=== PATIENT | female | born 1955 | race Caucasian/White ===

== ENCOUNTER 2016-06-02 11:08 | Emergency (ER) | payer OTHER ==
[~2016-06-02] VITALS: Ht 167.6 cm; Wt 104.9 kg
[~2016-06-02 11:08] MED LIST: CALC500C70 PO; CETI10TA10 PO; CYAN10005 PO; DILT-115 PO; DOCU100C31 PO; ESOM20CA PO; FIBER PO; FURO40TA3 PO; GLIP-199 PO; GLUC10007 PO; HMLIS SQ; INSUINJ4 SQ; LSNP/30 PO; METF-384 PO; MULT-602 PO; POTA20TA16 PO; PRAV80TA PO
[2016-06-02 11:13] VITALS: TEMP 37; Ht 167.6 cm; Wt 104.9 kg
[2016-06-02] MEDS ORDERED: ALUMINUM/MAGNESIUM SUSP 30 ML UDC PO STA (11:32)
[2016-06-02] MEDS ORDERED: LIDOCAINE HCL 2% VISC SOLN 20 ML UDC PO STA (11:32)
[2016-06-02] MEDS ORDERED: PROB1CAP41 PO (11:53)
[2016-06-02] MEDS ORDERED: INSDGI SC (11:53)
[2016-06-02] MEDS ORDERED: FAMOTIDINE 20MG/102 ML D5W IV STA (12:14)
[2016-06-02] MEDS ORDERED: OXYCODONE HCL IR 5 MG TAB (IMMEDIATE RELEASE) PO STA (12:14)
[2016-06-02] MEDS ORDERED: PANTOprazole INJ 40 MG in SYRINGE 0 ML IV ONE (12:15)
[2016-06-02 12:20] LABS: URINE APPEARANCE CLEAR (CLEAR); URINE BILIRUBIN NEG (NEG); URINE COLOR YELLOW; URINE EPITHELIAL CELL AUTO 20-30 /lpf (0-5); URINE NITRITE NEG (NEG); URINE SPECIFIC GRAVITY 1.012 (1.000-1.030); UROBILINOGEN NEG (NEG); ZZUR CULT IF INDIC CLEAN CATCH YES
[2016-06-02 12:26] LABS: HEMATOCRIT 37.8 % (37-47); MEAN CELL VOLUME 87.5 fL (80-100); MEAN CORPUSCULAR HEMOGLOBIN 29.6 pg (25-34); MEAN CORPUSCULAR HGB CONC 33.9 g/dl (32-36); MEAN PLATELET VOLUME 9.1 fL (7.4-10.4); PLATELET COUNT 330 K/uL (130-400); RED BLOOD COUNT 4.32 M/uL (4.2-5.4); WHITE BLOOD COUNT 10.15 K/uL (4.8-10.8)
[2016-06-02 12:28] LABS: MANUAL MICROSCOPIC REQUIRED? NO; REVIEW REQ? NO
[2016-06-02 12:46] LABS: BUN/CREATININE RATIO 18.5 (10-20); CALCIUM 9.2 mg/dl (8.5-10.1); CREATININE 0.81 mg/dl (0.60-1.20)
[2016-06-02 12:48] LABS: BASO % 0.1 %; BASO ABS # 0.01 K/uL (0-0.2); COMPLETE YES; EOS % 0.1 %; IG% 0.2 %; LYMPH % 7.1 %; LYMPH ABS # 0.72 K/uL (1.2-3.4); NEUT % 87.5 %
[2016-06-02] MEDS ORDERED: ONDANSETRON INJ 2 MG/ML 2 ML VIAL IV STA (13:09)
[2016-06-02] MEDS ORDERED: MoRPHine SULFATE 10 MG/ML CARP/VIAL IV STA (13:09)
[2016-06-02 13:36] VITALS: O2SAT 86
--- NOTE | 2016-06-02 14:07 | DIAGNOSTIC IMAGING REPORT ---
ABDOMEN 2VIEW W/PA CHEST RTN CLINICAL HISTORY: epigastric pain COMPARISON STUDY: 11/13/2015 FINDINGS: The cardiac and mediastinal contours remain stable. There is elevation right hemidiaphragm. There is a persistent right infrahilar opacity, likely representing a summation of atelectatic changes and pulmonary vessels.] Supine views the abdomen reveal scattered stool within the colon. There is a levoscoliosis. There are no transition zones indicate bowel obstruction. There is a pelvic calcification possibly representing a degenerated uterine fibroid. IMPRESSION: No evidence of bowel obstruction. No evidence of free air. Electronically signed by: Ambrosio Wray M.D. 06/02/2016 2:05 PM Dictated Date/Time: 06/02/2016 2:03 PM
--- NOTE | 2016-06-02 14:38 | EMERGENCY ROOM VISIT NOTE ---
History First contact with patient: 11:21 Chief Complaint: OTHER COMPLAINT Stated Complaint: PRESSURE BETWEEN BREAST History of Present Illness The patient is a 61 year old female who presents to the Emergency Room with complaints of epigastric pain which started this morning. The patient states that the pain is in the epigastric region and then radiates somewhat down into her abdomen and up into her throat. The patient admits to feeling slightly nauseated but no vomiting. 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 Her last endoscopy was 2013. The patient is on Nexium for her esophagitis. The patient states that she ate Frisian yesterday but no other out of the ordinary foods. The patient denies any chest pain or shortness of breath. The patient states that she had similar symptoms in October and had a complete cardiac workup which was negative. The patient denies any recent URI symptoms or cough or chest tightness. Review of Systems 10 system review was performed and was negative unless stated otherwise history of present illness. Past Medical/Surgical History Medical Problems: (1) Hypertension (2) Insulin dependent diabetes mellitus Surgical Problems: (1) History of appendectomy (2) History of breast biopsy Sewell esophagitis Family History FH: coronary artery disease FH: diabetes mellitus FH: hypertension Social History Smoking Status: Never Smoker Alcohol Use: none Drug Use: none Marital Status: Housing Status: lives with family Occupation Status: employed Current/Historical Medications Scheduled Calcium/Vitamin D (Os-Derek 500 Plus D), 1 TAB PO DAILY Cetirizine Hcl (Zyrtec), 10 MG PO DAILY Cyanocobalamin (Vitamin B-12), 1,000 MCG PO DAILY Diltiazem Hcl Ext Rel (Tiazac), 240 MG PO DAILY Docusate Sodium (Docusate Sodium), 100 MG PO BID Esomeprazole Magnesium (Nexium), 20 MG PO DAILY Fiber Laxative (Fiber Laxative), 1 TAB PO BID Furosemide (Lasix), 40 MG PO BID Glipizide (Glipizide Er), 10 MG PO DAILY Glucosamine Sulfate (Glucosamine), 1,500 MG PO BID Insulin Glargine (Lantus), 0 SC QPM Insulin Human Lispro (Humalog Kwikpen), UNITS SQ TIDM Lisinopril (Zestril), 30 MG PO DAILY Metformin Hcl (Glucophage), 1,000 MG PO BID Multiple Vitamins W/ Minerals (Womens 50+ Multi Vitamin), 1 TAB PO DAILY Potassium Ext Rel (Klor-Con), 20 MEQ PO DAILY Pravastatin Sodium (Pravachol), 80 MG PO DAILY Probiotic Product (Probiotic Daily), 1 TAB PO DAILY Allergies Coded Allergies: No Known Allergies (Unverified , 11/13/15) Physical Exam Vital Signs Date Time Temp Pulse Resp B/P Pulse Ox O2 Delivery O2 Flow Rate FiO2 06/02/16 13:36 95 Nasal Cannula 2.0 06/02/16 13:36 86 Room Air 06/02/16 13:26 90 18 136/73 98 Room Air 06/02/16 11:13 37.0 86 17 173/92 100 Room Air Pain Rating (0-10): 6.0 Physical Exam GENERAL: 61 year-old obese white female appears in no acute distress. MENTAL Status: Alert and oriented 3. EYES: No icterus noted MOUTH: Mucosa is moist NECK: Supple, no lymphadenopathy noted. No carotid bruits noted. LUNGS: Clear auscultation without wheezes rales or rhonchi. CARDIAC: Regular rate and rhythm without murmur. Pulses is full and equal throughout. BACK: No CVA tenderness noted. ABDOMEN: Positive bowel sounds all 4 quadrants. Soft, patient has moderate tenderness to palpation in the epigastric region and mild tenderness in the left upper quadrant otherwise nontender to palpation without organomegaly or masses. EXTREMITIES: No cyanosis or edema noted. Medical Decision & Procedures ER Provider Diagnostic Interpretation: ABDOMEN 2VIEW W/PA CHEST RTN CLINICAL HISTORY: epigastric pain COMPARISON STUDY: 11/13/2015 FINDINGS: The cardiac and mediastinal contours remain stable. There is elevation right hemidiaphragm. There is a persistent right infrahilar opacity, likely representing a summation of atelectatic changes and pulmonary vessels.] Supine views the abdomen reveal scattered stool within the colon. There is a levoscoliosis. There are no transition zones indicate bowel obstruction. There is a pelvic calcification possibly representing a degenerated uterine fibroid. IMPRESSION: No evidence of bowel obstruction. No evidence of free air. Electronically signed by: Ambrosio Wray M.D. 06/02/2016 2:05 PM Dictated Date/Time: 06/02/2016 2:03 PM Laboratory Results 06/02/16 11:58 Red Blood Count 4.32, Mean Corpuscular Volume 87.5, Mean Corpuscular Hemoglobin 29.6, Mean Corpuscular Hemoglobin Concent 33.9, Mean Platelet Volume 9.1, Neutrophils (%) (Auto) 87.5, Lymphocytes (%) (Auto) 7.1, Monocytes (%) (Auto) 5.0, Eosinophils (%) (Auto) 0.1, Basophils (%) (Auto) 0.1, Neutrophils # (Auto) 8.88, Lymphocytes # (Auto) 0.72, Monocytes # (Auto) 0.51, Eosinophils # (Auto) 0.01, Basophils # (Auto) 0.01 06/02/16 11:58 Test 06/02/16 11:47 06/02/16 11:58 Urine Color YELLOW Urine Appearance CLEAR (CLEAR) Urine pH 5.0 (4.5-7.5) Urine Specific [place] 1.012 (1.000-1.030) Urine Protein NEG (NEG) Urine Glucose (UA) NEG (NEG) Urine Ketones NEG (NEG) Urine Occult Blood NEG (NEG) Urine Nitrite NEG (NEG) Urine Bilirubin NEG (NEG) Urine Urobilinogen NEG (NEG) Urine Leukocyte Esterase TRACE (NEG) Urine WBC (Auto) 1-5 /hpf (0-5) Urine RBC (Auto) 0-4 /hpf (0-4) Urine Hyaline Casts (Auto) 1-5 /lpf (0-5) Urine Epithelial Cells (Auto) 20-30 /lpf (0-5) Urine Bacteria (Auto) 2+ (NEG) White Blood Count 10.15 K/uL (4.8-10.8) Red Blood Count 4.32 M/uL (4.2-5.4) Hemoglobin 12.8 g/dL (12.0-16.0) Hematocrit 37.8 % (37-47) Mean Corpuscular Volume 87.5 fL (80-100) Mean Corpuscular Hemoglobin 29.6 pg (25-34) Mean Corpuscular Hemoglobin Concent 33.9 g/dl (32-36) Platelet Count 330 K/uL (130-400) Mean Platelet Volume 9.1 fL (7.4-10.4) Neutrophils (%) (Auto) 87.5 % Lymphocytes (%) (Auto) 7.1 % Monocytes (%) (Auto) 5.0 % Eosinophils (%) (Auto) 0.1 % Basophils (%) (Auto) 0.1 % Neutrophils # (Auto) 8.88 K/uL (1.4-6.5) Lymphocytes # (Auto) 0.72 K/uL (1.2-3.4) Monocytes # (Auto) 0.51 K/uL (0.11-0.59) Eosinophils # (Auto) 0.01 K/uL (0-0.5) Basophils # (Auto) 0.01 K/uL (0-0.2) RDW Standard Deviation 41.8 fL (36.4-46.3) RDW Coefficient of Variation 13.0 % (11.5-14.5) Immature Granulocyte % (Auto) 0.2 % Immature Granulocyte # (Auto) 0.02 K/uL (0.00-0.02) Anion Gap 7.0 mmol/L (3-11) Est Creatinine Clear Calc Drug Dose 89.3 ml/min Estimated GFR () 90.9 Estimated GFR (Non- 78.4 BUN/Creatinine Ratio 18.5 (10-20) Calcium Level 9.2 mg/dl (8.5-10.1) Total Bilirubin 0.4 mg/dl (0.2-1) Direct Bilirubin 0.1 mg/dl (0-0.2) Aspartate Amino Transf (AST/SGOT) 14 U/L (15-37) Alanine Aminotransferase (ALT/SGPT) 32 U/L (12-78) Alkaline Phosphatase 79 U/L (45-117) Total Protein 7.2 gm/dl (6.4-8.2) Albumin 3.9 gm/dl (3.4-5.0) Lipase 124 U/L (73-393) Medications Administered Medications (Trade) Dose Ordered Sig/Nabila Route Start Time Stop Time Status Last Admin Dose Admin Lidocaine HCl (Viscous Lidocaine 2% Soln) 10 ml NOW STAT PO 06/02/16 11:32 06/02/16 11:34 DC 06/02/16 11:53 10 ML Al Hydroxide/Mg Hydroxide 30 ml 30 ml NOW STAT PO 06/02/16 11:32 06/02/16 11:34 DC 06/02/16 11:53 30 ML Pantoprazole Sodium/Syringe (Protonix Inj/ Syringe) 10 ml @ 5 mls/min NOW ONCE IV 06/02/16 12:15 4/8/17 12:16 DC 06/02/16 13:31 5 MLS/MIN Famotidine (Pepcid 20mg/100 ml) 20 mg ONE STAT IV 06/02/16 12:14 06/02/16 12:16 DC 06/02/16 12:38 20 MG Oxycodone HCl (Roxicodone Immediate Rel Tab) 5 mg NOW STAT PO 06/02/16 12:14 06/02/16 12:16 DC 06/02/16 12:38 5 MG Morphine Sulfate (MoRPHine SULFATE INJ) 6 mg NOW STAT IV 06/02/16 13:09 06/02/16 13:11 DC 06/02/16 13:20 6 MG Ondansetron HCl (Zofran Inj) 4 mg NOW STAT IV 06/02/16 13:09 06/02/16 13:11 DC 06/02/16 13:19 4 MG ECG Indication: abdominal pain Rhythm: normal sinus Findings: no acute ischemic change ED Course Before I evaluated the patient, the nurses went on the triage nurses statement pain between her breasts therefore ordered an EKG. This was interpreted as above without any acute findings. The patient's pain is not in her chest and she has tenderness in the epigastric region and with the patient's history of present illness I feel that this is most likely the etiology. The patient was given a GI cocktail. She got only slight relief. IV access was obtained. CBC and differential, renal profile, LFTs and lipase levels were ordered. The patient was given OxyIR 5 mg for pain. She was also given Protonix 40 mg IV push and Pepcid 20 mg IV. The patient was reevaluated and was still having some discomfort therefore she was given morphine 6 mg IV for pain. She was given Zofran 4 mg for associated nausea. Abdominal series x-ray was ordered and interpreted by the radiologist as above without any acute findings. Labs are reviewed and were unremarkable. The patient was reevaluated and was feeling much better. The patient was discharged home in stable condition.. Medical Decision Differential diagnoses include reflux, gastritis, gastroenteritis, pancreatitis , cholelithiasis, cholecystitis, appendicitis, mesenteric ischemia, pyelonephritis, urinary tract infection, renal colic, diverticulitis, shingles, bowel obstruction, intussusception, hernia, ovarian torsion, ruptured ovarian cyst, ectopic , . The patient's pain was mainly in the epigastric region and therefore I felt that this was most likely due to her Sewell's esophagitis. Impression Primary Impression: Epigastric pain Additional Impression: Sewell's esophagus with esophagitis Departure Information Dispostion Home / Self-Care Condition GOOD Referrals No Doctor, Assigned (PCP) Forms HOME CARE DOCUMENTATION FORM, IMPORTANT VISIT INFORMATION, WORK / SCHOOL INSTRUCTIONS Patient Instructions My [facility] [employer] Additional Instructions Continue Nexium as prescribed. Take Zantac 150 mg at bedtime. Appointment with gastroenterology as soon as possible for endoscopy. If you have any severe chest pain, shortness of breath, uncontrolled nausea vomiting return to ER immediately. Problem Qualifiers
[2016-06-02 14:53] VITALS: BP 123/77; PULSE 80; O2SAT 98
--- NOTE | 2016-06-04 18:52 | Pharmacy Progress Note ---
ED Pharmacist Culture FollowUp Date of Service: Jun 04, 2016. E. coli isolated in urine culture. No urinary symptoms mentioned in note. Urinalysis wnl with the exception trace leukocyte esterase and 2+ bacteria. Significant epithelial cells present. No nitrite. Likely contaminant. No intervention required. Case discussed w Dr. Diaz.
== END 2016-06-02 14:58 | disposition home or self-care (01) ==
LOC: C.EDB 11:09
DX: K22.70 Barrett's esophagus without dysplasia (principal); R10.13 Epigastric pain; I10 Essential (primary) hypertension; E11.9 Type 2 diabetes mellitus without complications; Z79.4 Long term (current) use of insulin; Z98.890 Other specified postprocedural states; Z79.84 Long term (current) use of oral hypoglycemic drugs; Z79.899 Other long term (current) drug therapy